=== PATIENT | male | born 2000 | race Caucasian/White ===

== ENCOUNTER 2025-04-03 10:14 | Emergency (ER) | payer BC, SELFPAY ==
[2025-04-03 10:27] VITALS: BP 144/105; PULSE 71; TEMP 36.6; O2SAT 99; BMI 20.5
--- NOTE | 2025-04-03 10:39 | CT_ITS ---
[address] [address] Patient Name: DELANO CARCAMO MRN: [id number] date: 2000 Sex: M Assigned Patient Location: ER Current Patient Location: .[facility] Accession/Order Number: [id number] Exam Date: 04/03/2025 10:52 Report Date: 04/03/2025 11:13 At the request of: UBALDO VILLARREAL MD Procedure: CT abdomen pelvis w con CT abdomen pelvis w con 04/03/2025 11:01 AM SIGNS AND SYMPTOMS: Right lower quadrant pain TECHNIQUE: Multidetector ct axial images of the abdomen and pelvis were obtained without IV contrast. Multiplanar reformats were performed and reviewed to further define anatomy and possible pathology. CT was performed with one or more of the following dose reduction techniques: Automated exposure control, adjustment of the mA and/or kV according to patient size, or use of iterative reconstruction technique. COMPARISON: None. FINDINGS: Lower Chest: Within normal limits. ABDOMEN: Liver: Within normal limits. Bile Ducts: Normal caliber. Gallbladder: No calcified gallstones. Normal caliber wall. Pancreas: Within normal limits. Spleen: Within normal limits. Adrenals: Within normal limits. Kidneys: There is a simple cyst in the left renal cortex requiring no further follow-up. Pelvis: Reproductive Organs: No pelvic masses. Ureters: Within normal limits. Bladder: Within normal limits. Bowel: Appendix is dilated measuring 9 mm in greatest transverse dimension with adjacent edema consistent with acute appendicitis. There is no evidence of perforation or abscess formation. Mesenteric Lymph Nodes: There are nonspecific lymph nodes inferior. Peritoneum: No ascites or free air, no fluid collection. Vessels: within normal limits Retroperitoneum: Within normal limits. Abdominal Wall: Within normal limits. Bones: Within normal limits. CT/CT abdomen pelvis w con IMPRESSION: Appendix is dilated measuring 9 mm in greatest transverse dimension with adjacent edema consistent with acute appendicitis. There is no evidence of perforation or abscess formation. Impression dictated by: Sd Valentin M.D. 04/03/2025 11:13 AM Dictation Location: [place] [address] Electronically authenticated by: [id number] Y Date: 04/03/2025 11:13
--- NOTE | 2025-04-03 10:40 | ED_ITS ---
HPI - Abdominal Pain General Chief Complaint: Abdominal Pain Stated Complaint: abdominal pain Time Seen by Provider: 04/03/25 10:31 Source: patient Mode of arrival: walk-in Limitations: no limitations History of Present Illness HPI narrative: The patient is a 25 years old male with no significant known past medical history presented to the ER with right lower quadrant pain that started this morning around 8 AM and he the patient last time he had a full meal was yesterday around 10 PM but he also had some crackers at 8 am . The patient is not having any nausea or vomiting and change in bowel habits, the pain is right lower quadrant not radiating and according to him it is 7 out of 10 Related Data Home Medications ?Medication ?Instructions ?Recorded ?Confirmed No Known Home Medications 04/03/2503/15 Allergies Allergy/AdvReac Type Severity Reaction Status Date / Time No Known Drug Allergies Allergy Verified 04/03/25 10:27 Review of Systems ROS Status of ROS 10 or more systems reviewed and unremark able except as noted in history and below PFSH PFSH Social History Little interest or pleasure in doing things: not at all Feeling down, depressed, or hopeless: not at all Exam Narrative Exam Narrative: Nurses notes and vital signs reviewed and patient is not hypoxic. General: Well-appearing and in no apparent distress. Skin: Warm, dry, no pallor noted. No rash. Head: Normocephalic, atraumatic. Neck: Supple, non-tender. Cardiovascular: Regular Rate and Rhythm without murmur, gallop or rub. Respiratory: No accessory muscle use or respiratory distress. Lungs are clear to auscultation, no wheezing, rales or rhonchi GI: Abdomen is soft, non-distended. Right lower quadrant tenderness. Neurological: A&O x4. No cranial nerve dysfunction observed. No truncal ataxia. Moves all extremities. Sensation intact. Psychiatric: Cooperative and interactive. Normal mood and affect. Constitutional Vital Signs, click to edit/add: Last Vital Signs Temp 97.9 F 04/03/25 10:27 Pulse 71 04/03/25 10:27 Resp 18 04/03/25 10:27 BP 144/105 H 04/03/25 10:27 Pulse Ox 99 04/03/25 10:27 O2 Del Method Room Air 04/03/25 10:27 Course Vital Signs Vital signs: Vital Signs Temperature 97.9 F 04/03/25 10:27 Pulse Rate 71 04/03/25 10:27 Respiratory Rate 18 04/03/25 10:27 Blood Pressure 144/105 H 04/03/25 10:27 Pulse Oximetry 99 04/03/25 10:27 Oxygen Delivery Method Room Air 04/03/25 10:27 Temperature 97.9 F 04/03/25 10:27 Pulse Rate 71 04/03/25 10:27 Respiratory Rate 18 04/03/25 10:27 Blood Pressure 144/105 H 04/03/25 10:27 Pulse Oximetry 99 04/03/25 10:27 Oxygen Delivery Method Room Air 04/03/25 10:27 MDM - Abdominal Pain MDM Narrative Medical decision making narrative: Presentation highly suspicious of acute appendicitis White blood cell is 12.3 and the patient chemistry was within normal CAT scan of the abdomen and pelvis with contrast showed that the patient have appendix dilated with at 9 mm with the greatest transverse dimension with adjacent edema this is consistent with acute appendicitis Patient is kept n.p.o. Recommended transfer to be admitted under in [facility] for OR Patient informed of the result and agreeable to transfer Lab Data Labs: Lab Results 04/03/25 Range/Units 10:44 WBC 12.1 H (4.0-11.0) 10^3/uL RBC 4.53 L (4.70-6.10) 10^6/uL Hgb 13.8 L (14.0-18.0) g/dL Hct 39.9 L (42.0-54.0) % MCV 88.1 (80.0-94.0) fL MCH 30.5 (25.9-34.0) pg MCHC 34.6 (29.9-35.2) g/dL RDW 12.3 (11.0-15.0) % Plt Count 259 (150-450) 10^3/uL MPV 10.7 (9.5-13.5) fL Neut % (Auto) 76.2 H (43.0-75.0) % Lymph % (Auto) 11.7 L (20.5-60.0) % Anderson % (Auto) 8.6 (1.7-12.0) % Eos % (Auto) 3.0 (0.9-7.0) % Baso % (Auto) 0.4 (0.2-2.0) % Neut # (Auto) 9.3 H (1.4-6.5) 10^3/uL Lymph # (Auto) 1.4 (1.2-3.8) 10^3/uL Anderson # (Auto) 1.0 H (0.3-0.8) 10^3/uL Eos # (Auto) 0.4 (0.0-0.7) 10^3/uL Baso # (Auto) 0.1 (0.0-0.1) 10^3/uL Abs Immat Gran (auto) 0.01 (0.00-0.03) 10^3/uL Imm/Tot Granulo (auto) 0.1 (0.0-0.5) % Sodium 139 (136-145) mmol/L Potassium 3.8 (3.5-5.1) mmol/L Chloride 101 (98-107) mmol/L Carbon Dioxide 27.2 (21.0-32.0) mmol/L Anion Gap 14.6 BUN 18.0 (7.0-18.0) mg/dL Creatinine 0.90 (0.70-1.30) mg/dL Est GFR ( Amer) >60 (>=60 mL/min/1.73m^2) Est GFR (Non-Af Amer) >60 (>=60 mL/min/1.73m^2) BUN/Creatinine Ratio 20.0 Glucose 95 (74-106) mg/dL Calcium 9.4 (8.5-10.1) mg/dL Total Bilirubin 0.4 (0.2-1.0) mg/dL AST 18 (15-37) U/L ALT 26 (16-63) U/L Alkaline Phosphatase 54 (46-116) U/L Total Protein 8.0 (6.4-8.2) g/dL Albumin 4.2 (3.4-5.0) g/dL Globulin 3.8 g/dL Albumin/Globulin Ratio 1.1 Discharge Plan Discharge Chief Complaint: Abdominal Pain Clinical Impression: Acute appendicitis Time of Disposition Decision: 11:24 Prescriptions / Home Meds: No Action No Known Home Medications Print Language: Citizen Of [place] Referrals: Physician,Non-Staff, MD [Primary Care Provider] - 1 week
--- OUTSIDE RECORDS SUMMARY | 2025-04-03 10:47 | XMS_ITS | Clinical Summary ---
Author Organization [facility] Address [address] [place] [address] Care Team Providers Care Auto Glass Installer Name Role Phone Unavailable Primary Care Provider Unavailabl e Allergies No known active allergies Medications No known medications Social History Tobacco UseTypesPacks/DayYears UsedDateSmoking Tobacco: NeverSmokeless Tobacco: Never Tobacco Cessation:Counseling Given: Not Answered Alcohol UseStandard Drinks/WeekCommentsNever0 (1 standard drink = 0.6 oz pure alcohol)Sex and Gender InformationValueDate RecordedSex Assigned at BirthNot on fileLegal BheTusr3308/26/2022 7:05 PM EDTGender IdentityNot on fileSexual OrientationNot on file Last Filed Vital Signs Vital SignReadingTime TakenCommentsBlood Duykvklo598/7207 10:10 AM EDT Nbadt962101/10/2024 10:10 AM HHOStmuuwstocn78.3 ??C (97.4 ??F)01/10/2024 10:10 AM EDTRespiratory Jjyv964201/10/2024 10:10 AM EDTOxygen Fuqepvxnwe43%01/10/2024 10:10 AM EDTInhaled Oxygen Concentration--Vlrvka52.6 kg (166 lb 11.2 oz)01/10/2024 10:10 AM CYMThklvl898 cm (6' 2 )10/07/2021 12:00 PM EDTBody Mass Index21.4 10/07/2021 12:00 PM EDT Plan of Treatment Not on file Insurance
--- OUTSIDE RECORDS SUMMARY | 2025-04-03 10:47 | XMS_ITS | Clinical Summary ---
Author Organization [facility] tem Address [id number] [address] 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 Name Role Phone Juana Carreno MD Primary Care Provider [phone] Allergies No known active allergies Medications No known medications Active Problems No known active problems Family History RelationNameStatusCommentsBrotherAliveFatherAliveMotherJodiAliveSisterAlive Social History Tobacco UseTypesPacks/DayYears UsedDateSmoking Tobacco: NeverSmokeless Tobacco: NeverAlcohol UseStandard Drinks/WeekCommentsNot Asked0 (1 standard drink = 0.6 oz pure alcohol)sociallyChildcareAnswerDate NlfdlytcMiesjjvfxJzsrrls97/12/2019 EmploymentAnswerDate AqgfxgfrGsjvbatualAbpmhpu12/12/2019Purpose - LifeAnswerDate RecordedPurpose and direction in tnooFoeisdu80/11/2021ex and Gender Information ValueDate RecordedSex Assigned at BirthNot on fileLegal LrsRttc2801/17/2015 12:05 PM EDTGender IdentityNot on fileSexual OrientationNot on file Last Filed Vital Signs Vital SignReadingTime TakenCommentsBlood Qxhghrym843/9003 9:44 AM EDT Pulse--Bjiqzihbarz16 ??C (98.6 ??F)09/10/2021 9:44 AM EDTRespiratory Rate-- Oxygen Saturation--Inhaled Oxygen Concentration--Jypiwt03.3 kg (155 lb) 09/10/2021 9:44 AM MMZClnabo468 cm (6' 2 )09/10/2021 9:44 AM EDTBody Mass Index 19.903 9:44 AM EDT Plan of Treatment Health MaintenanceDue DateLast DoneCommentsDepression Eojrvfxdr82/07/2014Tobacco Bsytgxiwg27/07/2014dult BMI Rourzucjn94/07/2020DTaP,Tdap and Td Vaccines (7 - Td or Tdap), 03/08/2008, 10/19/2003, Additional history existsInfluenza Rzvtinv38 Medical Devices Not on file Insurance * Guarantor: Emanuel CARCAMO TypeRelation to PatientDate of BirthPhoneBilling AddressPersonal/AolbcoYoorsz86/03/1973 [address] [address] Care Teams Team MemberRelationshipSpecialtyStart DateEnd Date Juana Carreno MD PCP - [facility]08/27/17
[2025-04-03 10:52] LABS: Hematocrit 39.9 % (42.0-54.0); Hemoglobin 13.8 g/dL (14.0-18.0); Immature Granulocytes Abs Auto 0.01 10^3/uL (0.00-0.03); Immature Granulocytes Pct Auto 0.1 % (0.0-0.5); Lymphocytes Absolute Auto 1.4 10^3/uL (1.2-3.8); Mean Corpuscular HGB Conc 34.6 g/dL (29.9-35.2); Mean Corpuscular Hemoglobin 30.5 pg (25.9-34.0); Mean Corpuscular Volume 88.1 fL (80.0-94.0); Platelet Count 259 10^3/uL (150-450); Red Blood Count 4.53 10^6/uL (4.70-6.10); White Blood Count 12.1 10^3/uL (4.0-11.0)
[2025-04-03] MEDS: KETOROLAC TROMETHAMINE 30 MG/ML VIAL IVP (11:01)
[2025-04-03] MEDS: 0.9 % SODIUM CHLORIDE 1,000 ML 1000 ML IV (11:01)
[2025-04-03 11:23] LABS: Alanine Aminotransferase 26 U/L (16-63); Albumin Globulin Ratio 1.1; Albumin Level 4.2 g/dL (3.4-5.0); Alkaline Phosphatase 54 U/L (46-116); Anion Gap 14.6; Aspartate Amino Transferase 18 U/L (15-37); Blood Urea Nitrogen 18.0 mg/dL (7.0-18.0); Calcium 9.4 mg/dL (8.5-10.1); Carbon Dioxide 27.2 mmol/L (21.0-32.0); Chloride 101 mmol/L (98-107); Estimated GFR (African America >60 (>=60 mL/min/1.73m^2); Estimated GFR (Non-African Ame >60 (>=60 mL/min/1.73m^2); Globulin 3.8 g/dL; Glucose 95 mg/dL (74-106); Potassium 3.8 mmol/L (3.5-5.1); Sodium 139 mmol/L (136-145); Total Protein 8.0 g/dL (6.4-8.2)
[2025-04-03 11:52] VITALS: BP 153/80; PULSE 63; O2SAT 100
[2025-04-03 12:01] LABS: Glucose Urine UA NEGATIVE (NEGATIVE)
== END 2025-04-03 12:55 | disposition short-term general hospital (02) ==
PROVIDERS: Emergency Provider Emergency Medicine
DX: K35.80 Unspecified acute appendicitis (principal)
CPT/HCPCS: 36415; 74177; 80053; 81003; 85025; 96374; 99284; J1885; Q9967

== ENCOUNTER 2025-05-02 13:44 | Outpatient (OUT) | payer BC, SELFPAY ==
--- OUTSIDE RECORDS SUMMARY | 2024-12-12 14:54 | XMS_ITS | Continuity of Care Document ---
Author Organization [facility] Address [address] [place] [address] Phone Care Team Providers Care Director Of Government Sales Name Role Phone Mariusz Barrios PA-C Unavailable Unavailable Allergies, Adverse Reactions, Alerts Substance Reaction Status Criticality No Known Allergies Active No Inform ation Medications Medication Instructions Dosage Effective Dates (start - stop) Status Comments ibuprofen 400 mg tablet take 1 tablet by oral route every 4 - 6 hours as needed 400 MG - Active clindamycin HCl 300 mg capsule i po TID x 10d, # 30, NRF - No Longer Active Procedures Procedure Date OFFICE/OUTPATIENT VISIT, EST BODY MASS INDEX, DOCUMENTED Rx List Documented In Medical Record Nov No Pain Present Syst bp >/= 140 mm hg Diast bp 80-89 mm hg IMMUNIZATION ADMIN TDap Vaccine, >7, ADACEL/BOOSTRIX OFFICE/OUTPATIENT VISIT, EST BODY MASS INDEX, DOCUMENTED Rx List Documented In Medical Record Nov Pain Severity Quantified;pain Present Ju Syst bp >/= 140 mm hg Diast bp 80-89 mm hg OFFICE/OUTPATIENT VISIT, NEW Syst bp lt 130 mm hg Diast bp <80 mm hg Advance Directives Directive Yes / No Effective Date File Name No Information Encounters Encounter Description Practice Location Reason(s) For Visit Diagnoses Date Provider Providers Copied on Encounter [facility], [address], [place], [address], [place] tel:[phone] [facility] No Information 5 [facility]. [address] [facility] [place], [address], [place]. [phone] OFFICE/OUTPAT IENT VISIT, [facility], [address], [place], [address], [place] tel:[phone] [facility] wound care/ bandage change (chief complaint) Cutaneous abscess, unspecifiedBody mass index [BMI] 22.0-22.9, adult 5 Susana Kim. [address], [address], [place], [id number] , [place]. tel:[phone] OFFICE/OUTPAT IENT VISIT, [facility], [address], [place], [address], [place] tel:[phone] [facility] skin infection (chief complaint) Cutaneous abscess, unspecifiedCounse ling, unspecifiedNeed for Tdap vaccinationBody mass index [BMI] 23.0-23.9, adult 5 [facility]. [address] [facility] [place], [address], [place]. [phone] OFFICE/OUTPAT IENT VISIT, [facility], [address], [place], [address], [place] tel:[phone] [facility] 5th digit sprain, right hand (chief complaint) Closed fracture of proximal phalanx of fifth finger of right hand 201 [address] [facility] [place], [address]. tel:[phone] Family History Family Member Type Diagnosis Age At Onset No Information Immunizations Vaccine Date Status Comments TDaP administered Note: VACCINE A DMINISTRED, PATIENT TOLERATED WELL. ; Source: New Immunization Record Payers Payer name Insurance type Covered green party ID Authorthais robins(s) [facility] PPO BL [id number] [facility] PPO BL [id number] Social History Type Description Quantity Date Captured Comments Alcohol Use Details Unknown Caffeine Use Details Unknown Tobacco Use Status No Information Smoking Status No Information Sex Male Chief Complaint And Reason For Visit No Information Reason For Referral Reason For Referral No Information Plan Of Treatment Date Type Action Status Goal Eye Exam. Due on due Goal Depression screening. Due on due Goal Foot Exam. Due on due Goal Tdap due Goal Influenza vaccine. Due on due Goal Hepatitis C screening. Due o n due Goal Unhealthy drug u se screening. Due on due Goal Foot Exam. Due on due Goal Eye Exam. Due on due Goal Influenza vaccine. Due on due Goal Tdap due Goal Unhealthy drug u se screening. Due on due Goal Hepatitis C screening. Due o n due Goal Depression screening. Due on due Goal Unhealthy drug u se screening. Due on due Goal Depression screening. Due on due Goal Influenza vaccine. Due on due Goal Foot Exam. Due on due Goal Tdap due Goal Hepatitis C screening. Due o n due Goal Eye Exam. Due on due Patient Education Skin Abscess: Care Inst ructions completed History Of Present Illness Encounter Date Complaint History Of Prese nt Illness wound care/ bandage change 24-ye ar old male return for wound check. Had I&D 3 days ago and was told to come back for wound check and repacking. States that the packing fell off the first day after using the restroom including the packing. the bleeding has resolved 2 days ago. Has been taking abx as indicated. Denies pain, fever, chills, nausea, swelling, discharge. skin infection The symptoms beg an 4 days ago. The symptoms are reported as being mild. The symptoms occur daily. The symptoms are described as achy. Pertinent negatives include ROS: (-) F/C, (-) N/V/D. The patient states the symptoms are acute. CC: skin infection of lower R buttock 5th digit sprain, right hand The symptoms began 2 days ago. 14 yo sustained a hyperextended injury of the left pinkyFelt pain immidietly, swelling, aroung 5th MCP jointdifficulty bendingDenies numbness or tingling Functional Status Date Functional Assessmen t No Information Instructions Date Instruction Additional Infor mation Area without signs o f infection, properly healed. Area was cleaned, and properly repacked. continue with antibiotics and pain medications as prescribed. Recommend return in 2 days for repacking. return sooner if develop signs of infection, swelling, severe pain, fever, chills, vomiting. Patient is non toxic appearing. ER and return precautions provided. Patient understands and agrees with plan. Related to Cutaneous abscess, unspecified Take medications as directed Avoid actions which worsen symptoms or are unsafe No/limited use of af fected part until significantly improved or seen by PCP Seek follow up care if symptoms persist or return to Urgent Care Seek follow up care if symptoms persist, worsen, or new symptoms develop With the patient 's insurance, recommend self-refer to specialist: general surgeonDr. Leandro Lynch [id number]: Dr. Bala Guajardo M.D.[address], [place], [place] [address]Ltdkp: Related to Counseling, unspecified -Procedure Note: I & DDiscussed I&D procedure & R/B w/pt. Pt consented to move forward. Cleansed on the area. Lidocaine 1 % used for local anesthetic. # 11 blade use, and pt tolerate this. Packed with iodoform packing material. Island dressing place over area.-Discussed aftercare instructions with the patient. Keep area clean and dry, and recommend changing dressing twice a day. Monitor for s/s of infection such as erythema (redness), fever, etc.-Rx clindamycin. R/B discussed w/pt.-Red flag signs and symptoms were discussed w/ patient. If symptoms worsens, the patient was directed to return to Urgent Care or go to the Emergency Room. The patient expressed understanding.-Follow up in urgent care in 3 days for re-pack.-F/u with PCP in 3-5 days Order wound culture, pending result Related to Cutaneous abscess, unspecified Injury: Keep splint on, do not get it wetICE, REST, ElavationIf increased numbness, tingling, loss of feeling or pain gets worst remove splint and follow up in UCFollow up with ortho Related to Closed fracture of proximal phalanx of fifth finger of right hand Patient was given education for wounds Take medications as directed Seek follow up care if symptoms persist or return to Urgent Care Seek follow up care if symptoms persist, worsen, or new symptoms develop Assessments Type Assessment Date No Information Patient Care Teams Name Effective Dates (start - stop) Status Members No Information
--- OUTSIDE RECORDS SUMMARY | 2024-12-12 14:54 | XMS_ITS | Continuity of Care Document ---
Author Organization [facility] Address [address] [place] [address] Phone Care Team Providers Care Supervisor Pig Machine Name Role Phone Mariusz Barrios PA-C Unavailable [...] Diagnoses Date Provider Providers Copied on Encounter [facility], [address], [place], [address], [place] tel:[phone] [facility] No Information 5 [facility]. [address] [facility], [address], [place]. [phone] OFFICE/OUTPAT IENT VISIT, [facility], [address], [place], [address], [place] tel:[phone] [facility] wound care/ bandage change (chief complaint) Cutaneous abscess, unspecifiedBody mass index [BMI] 22.0-22.9, adult 5 Susana Kim. [address], [address], [place], [id number] , [place]. tel:[phone] OFFICE/OUTPAT IENT VISIT, [facility], [address], [place], [address], [place] tel:[phone] [facility] skin infection (chief complaint) Cutaneous abscess, unspecifiedCounse ling, unspecifiedNeed for Tdap vaccinationBody mass index [BMI] 23.0-23.9, adult 5 [facility]. [address] [facility], [address], [place]. [phone] OFFICE/OUTPAT IENT VISIT, [facility], [address], [place], [address], [place] tel:[phone] [facility] 5th digit sprain, right hand (chief complaint) Closed fracture of proximal phalanx of fifth finger of right hand [address] [facility] [place], [address]. tel:[phone] Family History Family Member Type Diagnosis Age At Onset No Information Immunizations Vaccine Date Status Comments TDaP administered Note: VACCINE A DMINISTRED, PATIENT TOLERATED WELL. ; Source: New Immunization Record Payers Payer name Insurance type Covered republican ID Authorthais robins(s) [facility] PPO BL [id number] [facility] PPO BL [id number] Social History Type Description Quantity Date Captured Comments Alcohol Use Details Unknown Caffeine Use Details Unknown Tobacco Use Status No Information Smoking Status No Information Sex Male Chief Complaint And Reason For Visit No Information Reason For Referral Reason For Referral No Information Plan Of Treatment Date Type Action Status Goal Unhealthy drug u se screening. Due on due Goal Hepatitis C screening. Due o n due Goal Influenza vaccine. Due on due Goal Tdap due Goal Foot Exam. Due on due Goal Depression screening. Due on due Goal Eye Exam. Due on due Goal Depression screening. Due on due Goal Hepatitis C screening. Due o n due Goal Unhealthy drug u se screening. Due on due Goal Tdap due Goal Influenza vaccine. Due on due Goal Eye Exam. Due on due Goal Foot Exam. Due on due Goal Eye Exam. Due on due Goal Hepatitis C screening. Due o n due Goal Tdap due Goal Foot Exam. Due on due Goal Influenza vaccine. Due on Ju due Goal Depression screening. Due on due Goal Unhealthy drug u se screening. Due on due Patient Education Skin Abscess: [...] with plan. Related to Cutaneous abscess, unspecified Seek follow up care if symptoms persist, worsen, or new symptoms develop Seek follow up care if symptoms persist or return to Urgent Care No/limited use of af fected part until significantly improved or seen by PCP Avoid actions which worsen symptoms or are unsafe Take medications as directed With the patient 's insurance, recommend self-refer to specialist: general surgeonDr. Leandro Lynch [id number]: Dr. Bala Guajardo M.D.[address], [place], [place] [address]Thcah: Related to Counseling, unspecified -Procedure Note: I [...] phalanx of fifth finger of right hand Seek follow up care if symptoms persist, worsen, or new symptoms develop Seek follow up care if symptoms persist or return to Urgent Care Take medications as directed Patient was given education for wounds Assessments Type Assessment Date No Information Patient Care Teams Name Effective Dates (start - stop) Status Members No Information
--- OUTSIDE RECORDS SUMMARY | 2025-04-30 09:09 | XMS_ITS | Continuity of Care Document ---
Author Organization [facility] Address [address] [place] [address] Phone Care Team Providers Care Hoist Mechanic Name Role Phone Juana Carreno MD Primary Care Provider Chiki Brannon DO Attending Provider Radha Knox APRN Primary Care Provider Radha Knox APRN Attending Provider Care Teams Patient Care Team Team Status: Active Member Role/Relationship Status Dates Radha Knox APRN WINDOW DISPLAY DESIGNER-C Primary Care Provider Active Visit Care Team Team Status: Inactive Member Role/Relationship Status Dates Juana Carreno MD Primary Care Provider Active S tart: April 03, 2025 End: April 03, 2025Fredric DO ClovisAttmaria ProviderActiveStart: April 03, 2025 End: April 03, 2025 Patient Care Team Team Status: Inactive Member Role/Relationship Status Dates Radha Knox APRN WINDOW DISPLAY DESIGNER-C Primary Care Provider Active Start: April 302024 End: April 30, 2025Radha Knox APRN WINDOW DISPLAY DESIGNER-CAttending ProviderActive Start: April 30, 2025 End: April 30, 2025 Chief Complaint and Reason for Visit Chief Complaint Admit Date Acute Appendicitis April 03, 2025 1 :36pm Est Care/Testicle Pain April 30 1:29pm Reason for Visit Admit Date Acute appendicitis April 03, 2025 1 :36pm History of appendectomy April 30, 1:29pm Pectus excavatum April 30, 2025 1:29pm Right testicular pain April 30 1:29pm Wellness examination April 30, 2025 1:29pm Reason for Referral Type Reason(s) Provider Provider Contact Information P josephvider Address Start Date You may use alternating doses of ibuprofen (Motrin) 600 mg followed 3 hours later by 2 extra strength Tylenol's, followed 3 hours later by ibuprofen 600 mg. You may continue this repeating schedule for pain management.[place] Brannon Denis Phone: [phone] [address] [address] Allergies, Adverse Reactions, Alerts Allergen Type Severity Reaction Last Updated Verified Status No Known Allergies Allergy Unknown April 30, 2025 1:32pmYesActive Social History Smoking Status Status Start Date End Date Date of Observa tion Smokes tobacco daily (finding) April 03, 2025 3:23pm Observation Status Observation Response Date of Response Legal Sex Male (finding) Sex Assigned At BirthMaleSeptember 1999 Family History Relationship Condition Age at Onset Recorded Date/T rosetta maternal grandfather Coronary artery disease Unknown maternal grandmotherMalignant neoplasm of breastUnknown Problems Active Problems Problem Diagnosis/Recorded Date Onset Date Status C omments Wellness examination April 30, 2025 1:56pm Unknown Active History of appendectomyApril 30, 2025 1:56pmUnknownActiveRight testicular painApril 30, 2025 2:03pmUnknownActivePectus excavatumNovember 2024 2:04pmUnknownActiveAcute appendicitisMarober 2024 2:22pmUnknownActive Inactive/Resolved Problems Problem Diagnosis/Recorded Date Onset Date Status C omments Drug overdose April 08, 2019 8:41pm Unknown Resolve d Problem List clean-up per request of Phys. EHR Cmte Medications Medication Status Dose Units Route Directions Qty Days Refills S tart Date Stop Date End Date Reason(s) Instructions Adherence Oxycodone-Acetaminophen (Percocet) 5-325 mg tablet Discontinued 1 TAB PO Q 6H as needed for pain 12 3 0 April 03, 2025 April 30, 2025 1:32pmAcute appendicitis Acute appendicitis with localized peritonitis, without perforation or gangrene Cephalexin 500 mg ukuwxkmBmssnwcffxzg075VHLOSrzth 8 gbjvl6397Phgxhay 2024 11:00pmNov2024 1:32pmBupropion Hcl (Wellbutrin Sr) 100 mg Tablet Sustained-Release 12 HrDiscontinuedOctsaint [facility]ose[facility] 2018 11:00pmOctsaint jose[facility] 2024 12:57pmNo Name (No Known Home Meds)[facility] 12[facility]00am Procedures Procedure Date Performed Status OR Appendectomy Laparoscopic (Not Applicable) Oc tober 2024 2:30pm completed Vital Signs Vital Reading Result Reference Range Collection Date/Time Height 74 [in_i] April 03, 2025 12:29ykQaztco52.84 kgM[facility]2024 12:55pmBody Wugynbsafbv74 [degF]97.6-99.0[facility] 2024 3:52pmHeart Rate55 /hcw81-798 April 03, 2025 5:05pmRespiratory rate16 /jya48-93Nmpvfxw 21st, 2025 5:05pm Oxygen saturation by Pulse fnpnlekv53 %95-100[facility]2024 5:05pmBP Fbhdmrbu148 mm[Hg]100-140[facility]2024 5:05pmBP Payvcpaex49 mm[Hg]60-100 April 03, 2025 5:05pmInhaled oxygen flow rate0 L/minM[facility] 2024 4:22wdAjsozn91 [in_i]April 30, 2025 1:47ueRfyhwl72.57 kgUn[facility] Health [facility]2024 1:35pmHeart Rate84 /efk38-466Srrzqnht 17th, 2025 1:35pmRespiratory rate12 /min 12-24[facility]20[facility] 1:35pmOxygen saturation by Pulse apnoccto77 %95-100 April 30, 2025 1:35pmBP Iqbmfofo175 mm[Hg]100-140April 30, 2025 1:35pm BP Rkyqtxvyp62 mm[Hg]60-100April 30, 2025 1:35pmBMI (Body Mass Index)20.5 kg/v1PmpwatghApril 30, 2025 1:35pm Advance Directives Advance Directive Response Recorded Date/ Time Advance Directives No April 21, 2017 1:01pm Insurance Providers Guarantor Eusebio Quintero Address [address] [address] Info.Home Phone: Coverage Status Update:2025 Payer Group Member ID Coverage Type Subscriber Relationship to Subscriber Effective Date Expiration Date Bk DORSEY Id: [id number] Ingrid Id: [id number] [address] [place] [address] Home Phone: [employer] Id: [id number] Ingrid Id: [id number] [address] [facility] [address] Home Phone: Encounters Encounter Location(s) Arrival/Admit Date Discharge/Departure Date Discharge/Departure Disposition Provider(s) Departed Surgical Day Care Surgery [facility] April 03, 2025 1:36pm April 03, 2025 6:30pm Discharged to home care or self care (routine discharge) Chiki Brannon DO Departed Physician/ Provider Office Visit -[facility] April 30, 2025 1:29pm April 30, 2025 2:08pm Discharged to home care or self care (routine discharge) Radha Knox APRN INFORMATION SYSTEMS SECURITY MANAGER Recent Diagnosis Onset Date Admit Date Acute appendicitis Unknown April 03, 2025 1:36pm History of appendectomy Unknown April 30, 2025 1:29pm Pectus excavatum Unknown April 30, 2025 1:29pm Right testicular pain Unknown April 142024 1:29pm Wellness examination Unknown April 302024 1:29pm Assessments Diagnosis Onset Date Resolution Status Admit Date Acute appendicitis acuteOct2024 1:36pmHistory of appendectomyacuteNov2024 1:29pmPectus excavatumacuteNovember 2024 1:29pmRight testicular painacute April 30, 2025 1:29pmWellness examinationacuteApril 30, 2025 1:29pm Plan of Treatment Future Tests Future scheduled test information is unavailable Pending Tests Test Name Ordered Date Scheduled Date US scrotum April 30, 2025 2:06pm XR chest 2V*April 30, 2025 2:03pm Future Visits Future appointment information is unavailable Future Procedures Procedure Name Ordered Date Scheduled Date Post Anesthesia Tracer order April 03, 2025 1:12pm April 03, 2025 1:15pm Post Anesthesia Tracer order April 03, 2025 1:43pm April 03, 2025 1:45pm Discharge Order April 03, 2025 4:09pm Octobe r 2024 4:09pm Future Medications Future medication information is unavailable Patient Instructions Instruction Admit Date Know your Meds April 03, 2025 1 :36pm Goals Acute Goals Author Authored Date Experience reduced anxiety * Identifies current stressors * Develops effective coping behaviors * [facility] 20[facility] 6:01pmRemain free of complications [facility] 2024 6:01pmUnderstand preop/postop care/sensations * Verbalizes understanding of surgical procedure * Verbalizes understanding of sensations following surgery * Verbalizes understanding of post-op treatment [facility] 20[facility] 6:01pmReport pain at tolerable level * Uses pain scale appropriately * Identify options for pain control - Analgesics - Narcotics - Non-medication measuresSouth[facility] 2024 6:01pmAbsence of imbalanced fluid volume s/s [facility] 2024 4:48pmAbsence of physical injury [facility] 2024 6:01pmAbsence of surgical site infection [facility] 2024 6:01pm
--- NOTE | 2025-05-02 13:47 | US_ITS ---
The [address] [address] Patient Name: DELANO CARCAMO MRN: [id number] date: 2000 Sex: M Assigned Patient Location: US Current Patient Location: US Accession/Order Number: [id number] Exam Date: 05/02/2025 13:50 Report Date: 05/02/2025 23:39 At the request of: MEHUL STARKEY Procedure: US scrotum Scrotal ultrasound HISTORY: Right testicular pain for 6 months COMPARISON: None RIGHT testicle measures 5.0 x 3.4 x 2.7 cm. LEFT testicle measures 4.7 x 3.2 x 2.4 cm. No testicular mass or microcalcifications identified. Normal color flow of both testicles identified. Right epididymal head is enlarged compared to the left. No atherosclerosis.. No hydroceles identified. No scrotal wall abnormality identified. US/US scrotum IMPRESSION: Right epididymitis. Unremarkable testicles. Impression dictated by: Nasir Miranda M.D. 05/02/2025 11:39 PM Dictation Location: [place] [address] Electronically authenticated by: [id number] Y Date: 05/02/2025 23:39
--- OUTSIDE RECORDS SUMMARY | 2025-05-02 13:49 | XMS_ITS | Clinical Summary ---
Author Organization [facility] Address [address] [place] [address] Care Team Providers Care Experimental Machinist Name Role Phone Juana Carreno MD Primary Care Provider [phone] Allergies No known active allergies Medications MedicationSigDispense QuantityRefillsLast FilledStart DateEnd DateStatus cephalexin (Keflex) 500 MG capsule Every 8 hours5Active Encounters DateTypeDepartmentCare QptwTcpoffxsxzw80/30/2025 1:15 PM EDTOffice Visit [facility] [address] [id number] Chiki Brannon DO Acute appendicitis with localized peritonitis, without perforation, abscess, or gangrene (Primary Dx)04/12/20255502Ndypqy70/29/1507Elaiom88/28/3538Upsjpd53/22/2025 Vlohdk9304/03/2025bstract [facility] Chiki Brannon DO from Last 3 Months Family History DuexhzsiHwiuYwngbbZahhcggxCzibwnm6DixzfvTjteyJaqwdfLnoxoJnnsbn0 Social History Tobacco UseTypesPacks/DayYears UsedDateSmoking Tobacco: NeverSmokeless Tobacco: Current Tobacco Cessation:Ready to Q uit: Not Asked; Counseling Given: Not Answered Comments:vapes Alcohol UseStandard Drinks/WeekCommentsNever0 (1 standard drink = 0.6 oz pure alcohol)Sex and Gender InformationValueDate RecordedSex Assigned at BirthNot on fileLegal GtoPuzn6408/26/2022 7:05 PM EDTGender IdentityNot on fileSexual OrientationNot on file Last Filed Vital Signs Vital SignReadingTime TakenCommentsBlood Kmtyronb572/8810 1:24 PM EDT Awpxz807701/10/2024 10:10 AM ZPRYsftbdfnsxa04.3 ??C (97.4 ??F)01/10/2024 10:10 AM EDTRespiratory Tmyi284401/10/2024 10:10 AM EDTOxygen Ebelijeoiy72%01/10/2024 10:10 AM EDTInhaled Oxygen Concentration--Ypuwvf91.7 kg (158 lb)04/12/2025 1:24 PM EDT Nuoaqz927 cm (6' 2 )04/12/2025 1:24 PM EDTBody Mass Index20.291 1:24 PM EDT Plan of Treatment Not on file Insurance Care Teams Team MemberRelationshipSpecialtyStart DateEnd Date Juana Carreno MD [address] [facility] [place] [phone] PCP - GeneralFamily Nmtgqdek42/22/25
--- OUTSIDE RECORDS SUMMARY | 2025-05-02 13:49 | XMS_ITS | Clinical Summary ---
Author [facility] Address [id number] [address] [place] [address] Care Team Providers Care Cytogenetics Technologist Name Role Phone Juana Carreno MD Primary Care Provider [phone] Allergies No known active allergies Medications No known medications Active Problems No known active problems Family History RelationNameStatusCommentsBrotherAliveFatherAliveMotherJodiAliveSisterAlive Social History Tobacco UseTypesPacks/DayYears UsedDateSmoking Tobacco: NeverSmokeless Tobacco: NeverAlcohol UseStandard Drinks/WeekCommentsNot Asked0 (1 standard drink = 0.6 oz pure alcohol)sociallyChildcareAnswerDate DoyzbreuNrmmzgkxjQhacjku73/12/2019 EmploymentAnswerDate IpfaoycsRxrgkriqzsUirweex59/12/2019Purpose - LifeAnswerDate RecordedPurpose and direction in lwtwEhycigh95/11/2021ex and Gender Information ValueDate RecordedSex Assigned at BirthNot on fileLegal JldOkis6901/17/2015 12:05 PM EDTGender IdentityNot on fileSexual OrientationNot on file Last Filed Vital Signs Vital SignReadingTime TakenCommentsBlood Bsszrzco106/9003 9:44 AM EDT Pulse--Adtmfobnmvc64 ??C (98.6 ??F)09/10/2021 9:44 AM EDTRespiratory Rate-- Oxygen Saturation--Inhaled Oxygen Concentration--Qtotwl53.3 kg (155 lb) 09/10/2021 9:44 AM BAFPpcdgd096 cm (6' 2 )09/10/2021 9:44 AM EDTBody Mass Index 19.903 9:44 AM EDT Plan of Treatment Health MaintenanceDue DateLast DoneCommentsDepression Jqaggtuhp81/07/2014Tobacco Mburzjgdf28/07/2014dult BMI Caoirbhdh12/07/2020DTaP,Tdap and Td Vaccines (7 - Td or Tdap), 03/08/2008, 10/19/2003, Additional history existsInfluenza Apjbxvx69 Medical Devices Not on file Insurance * Guarantor: Emanuel CARCAMO TypeRelation to PatientDate of BirthPhoneBilling AddressPersonal/NzbdngHbpgko26/03/1973 [address] [address] Care Teams Team MemberRelationshipSpecialtyStart DateEnd Date Juana Carreno MD PCP - [facility]08/27/17
--- OUTSIDE RECORDS SUMMARY | 2025-05-02 13:50 | XMS_ITS | Clinical Summary ---
Author Organization [facility] Address [address] [place] [address] Care Team Providers Care Tractor Trailer Moving Van Driver Name Role Phone Unavailable Primary Care Provider Unavailabl e Encounters DateTypeDepartmentCare UgfsNjpfamjzyqf00/02/2025 1:02 AM EDT - 04/15/2025 8:04 AM [facility] Emergency Department [address] [place] [address] Isaiah Otero MD Wipprecht, Steven M, MD Discharge Disposition: Home or Self Care04/15/2025Travelfrom Last 3 Months Social History Tobacco UseTypesPacks/DayYears UsedDateSmoking Tobacco: Never AssessedSex and Gender InformationValueDate RecordedSex Assigned at BirthNot on fileLegal Sex Male04/15/2025 1:05 AM EDTGender IdentityNot on fileSexual OrientationNot on file Last Filed Vital Signs Vital SignReadingTime TakenCommentsBlood Kcfyzywn184/9504/15/2025 8:00 AM EST Nuvaw742104/15/2025 8:00 AM CBPFiaimibcdxc93.7 ??C (98 ??F)04/15/2025 8:00 AM EST Respiratory Jekp688804/15/2025 8:00 AM ESTOxygen Yopmuhulzh13%04/15/2025 8:00 AM ESTInhaled Oxygen Concentration--Weight--Height--Body Mass Index-- Plan of Treatment Health MaintenanceDue DateLast DoneCommentsHEPATITIS C VIRUS OLEJKDBAF2002 GYGOEGD50 2002HIV SCREENING RJWIHKHUXS12/07/2017HPV VACCINE ADOL (1 - Male 3- dose series)2017HPV VACCINE (1 - Male 3-dose series)2017HEP B VACCINE (1 of 3 - 19+ 3-dose series)2021TDAP (ADULT)2021OVID-19 VACCINE ( season)2025INFLUENZA VACCINE (#1)2025 PNEUMOCOCCAL VACCINE SERIESAged OutNo longer eligible based on patient's age to complete this topic Procedures Procedure NamePriorityDate/TimeAssociated DiagnosisCommentsCT SPINE CERVICAL WITHOUT ODUOHIVACVJA42/02/2025 1:[address] HEAD WITHOUT XVSHZMPQHOFG11/02/2025 1:53 AM EDT from Last 3 Months Results * CT SPINE CERVICAL WITHOUT CONTRAST (04/15/2025 1:53 AM EDT)Anatomical Region LateralityModalityC-spineComputed TomographySpecimen (Source)Anatomical Location / LateralityCollection Method / VolumeCollection TimeReceived Time 04/15/2025 2:35 AM EST Impressions 04/15/2025 6:18 AM EST IMPRESSION: No acute fracture or traumatic malalignment of the cervical spine. I personally viewed and interpreted these images and I have reviewed and approved this report. Narrative 04/15/2025 6:18 AM EST EXAM: CT SPINE CERVICAL WITHOUT CONTRAST, 04/15/2025 01:53 AM COMPARISON: None CLINICAL INDICATIONS: 25 years Male ??Acute ETOH intoxication, possible head trauma TECHNIQUE: A series of transaxial multislice computerized tomographic thin section source images are obtained with helical technique from clivus to upper thoracic spine without contrast. Reformats: Axial, sagittal, coronal. FINDINGS: There are 7 cervical vertebrae. There is slight reversal of the typical cervical lordosis in the upper cervical spine, which may be positional. Vertebral bodies are normal in height. Prevertebral and other paraspinal soft tissues are within normal limits. Intervertebral discs are within normal limits. Skull base and craniocervical junction is within normal limits. Procedure Note Tommie Joel MD - 04/15/2025 EXAM: CT SPINE CERVICAL WITHOUT CONTRAST, 04/15/2025 01:53 AM COMPARISON: None CLINICAL INDICATIONS: 25 years Male Acute ETOH intoxication, possiblehead trauma TECHNIQUE: A series of transaxial multislice computerized tomographicthin section source images are obtained with helical technique from clivus toupper thoracic spine without contrast. Reformats: Axial, sagittal, coronal. FINDINGS: There are 7 cervical vertebrae. There is slight reversal of the typical cervical lordosis in the upper cervical spine, which may be positional. Vertebral bodies are normal in height. Prevertebral and other paraspinal soft tissues are within normal limits. Intervertebral discs are within normal limits. Skull base and craniocervical junction is within normal limits. IMPRESSION IMPRESSION: No acute fracture or traumatic malalignment of the cervical spine. I personally viewed and interpreted these images and I have reviewed and approved this report. Authorizing ProviderResult TypeResult StatusAprKeck Hospital of USC ORDERABLES Final Result * CT HEAD WITHOUT CONTRAST (04/15/2025 1:53 AM EDT)Anatomical RegionLaterality ModalityHeadComputed TomographySpecimen (Source)Anatomical Location / LateralityCollection Method / VolumeCollection TimeReceived Time04/15/2025 2:33 AM EST Impressions 04/15/2025 2:55 AM EST IMPRESSION: No acute intracranial findings. I personally viewed and interpreted these images and I have reviewed and approved this report. Narrative 04/15/2025 2:55 AM EST EXAM: CT HEAD WITHOUT CONTRAST, 04/15/2025 1:53 AM COMPARISON: None CLINICAL INDICATIONS: 25 years Male acute ETOH intoxication, abrasion to head TECHNIQUE: A series of transaxial computerized tomographic images are obtained from base of skull to vertex without intravenous contrast. Axial whole-head and thin section posterior fossa slices are provided. Reformats: Sagittal and coronal. FINDINGS: ?? Segura-white matter differentiation is preserved. No acute large territory infarction is seen. ?? No acute intracranial hemorrhage is seen. No significant mass effect or midline shift. Ventricles are normal in size and configuration for patient age. Skull appears intact. Visualized orbits appear normal. Visualized paranasal sinuses are clear. Visualized mastoid air cells are clear. Procedure Note Tommie Joel MD - 04/15/2025 EXAM: CT HEAD WITHOUT CONTRAST, 04/15/2025 1:53 AM COMPARISON: None CLINICAL INDICATIONS: 25 years Male acute ETOH intoxication, abrasion tohead TECHNIQUE: A series of transaxial computerized tomographic images areobtained from base of skull to vertex without intravenous contrast. Axialwhole-head and thin section posterior fossa slices are provided. Reformats: Sagittal and coronal. FINDINGS: Segura-white matter differentiation is preserved. No acute large territory infarction is seen. No acute intracranial hemorrhage is seen. No significant mass effect or midline shift. Ventricles are normal in size and configuration for patient age. Skull appears intact. Visualized orbits appear normal. Visualizedparanasal sinuses are clear. Visualized mastoid air cells are clear. IMPRESSION IMPRESSION: No acute intracranial findings. I personally viewed and interpreted these images and I have reviewed and approved this report. Authorizing ProviderResult TypeResult StatusAprKaiser Permanente Medical CenterCCT ORDERABLES Final Result from Last 3 Months Insurance MemberSubscriberPlan / Payer (Effective 2022-Present)Name:Eusebio Quintero Relation to Subscriber:ChildName:Georgina Quintero Date of :1972 Address: [address] [place] [address] Payer ID:[id number] (NAIC) Group ID:Not on file Type:Not on file Address: [address] [place] [id number]
--- NOTE | 2025-05-02 14:18 | XR_ITS ---
[address] [address] Patient Name: DELANO CARCAMO MRN: [id number] date: 2000 Sex: M Assigned Patient Location: US Current Patient Location: US Accession/Order Number: [id number] Exam Date: 05/02/2025 14:30 Report Date: 05/02/2025 22:25 At the request of: MEHUL STARKEY Procedure: XR chest 2V Plain film chest Single view HISTORY: Pectus excavatum COMPARISON: None FINDINGS: SUPPORT DEVICES: None POSTSURGICAL CHANGES: None HEART: Within normal limits PULMONARY PALLAVI: Within normal limits MEDIASTINUM: Unremarkable LUNGS AND PLEURA: No acute lung process, pleural effusion or pneumothorax identified. BONY STRUCTURES: Pectus excavatum deformity ADDITIONAL FINDINGS None XR/XR chest 2V IMPRESSION: No acute process. Impression dictated by: Nasir Miranda M.D. 05/02/2025 10:25 PM Dictation Location[facility] Electronically authenticated by: [id number] Y Date: 05/02/2025 22:25
== END 2025-05-02 13:45 | disposition home or self-care (01) ==
LOC: US 13:44
PROVIDERS: PCP Nurse Practitioner Family; Visit Provider Nurse Practitioner Family
DX: N50.811 Right testicular pain (principal); N45.1 Epididymitis; Q67.6 Pectus excavatum
CPT/HCPCS: 71046; 76870